=== PATIENT | female | born 1960 | race Caucasian/White ===

== ENCOUNTER 2016-12-28 13:27 | Emergency (ER) | payer OTHER ==
[2016-12-28 13:47] VITALS: RESP 16; TEMP 98.5
--- NOTE | 2016-12-28 14:37 | ED ---
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 She states she had about one half hour loss of memory from this is not sure if she actually got knocked out. She states she's been functioning well she did have facial pain and nose pain but for the most part her face is healing up but today at work she developed some headache nausea vomiting. No focal weakness to her upper or lower extremities she denies any fevers chills or sweats she denies any blurry vision. She was instructed by her employer to come in for evaluation due to her prior history. MD Complaint: head injury, head pain, fall - Related Data Home Medications Medication Instructions Recorded Confirmed Citalopram Hydrobromide 40 mg PO DAILY 07/14/14 12/28/16 [Citalopram HBr] buPROPion [Wellbutrin] 100 mg PO TID 10/06/15 12/28/16 lamoTRIgine [LaMICtal] 100 mg PO BID 12/28/16 12/28/16 Previous Rx's Medication Instructions Recorded Acetaminophen Tab [Tylenol] 650 mg PO Q6HR PRN #0 tab 08/04/16 Allergies/Adverse reactions: Allergies Allergy/AdvReac Type Severity Reaction Status Date / Time morphine Allergy Itching Verified 12/28/16 14:31 aspirin AdvReac Unknown Verified 12/28/16 14:31 Review of Systems ROS Statement: Those systems with pertinent positive or pertinent negative responses have been documented in the HPI. ROS Other: All systems not noted in ROS Statement are negative. Neurological: Reports: as per HPI Past Medical History Past Medical History: Asthma, Cancer, CVA/TIA Additional Past Medical History / Comment(s): breast cancer, brain aneurysms, brain bleed History of Any Multi-Drug Resistant Organisms: None Reported Past Surgical History: Section, Cholecystectomy, Hysterectomy, Orthopedic Surgery Additional Past Surgical History / Comment(s): mariia mastectomy with reconstruction, carple tunnel, splenectomy, bladder surgery. 4inch metal plate in left wrist due to fall. Past Anesthesia/Blood Transfusion Reactions: No Reported Reaction Past Psychological History: Anxiety, Depression Smoking Status: Former smoker Past Alcohol Use History: None Reported Past Drug Use History: None Reported - Past Family History Mother Family Medical History: Cancer, Diabetes Mellitus Additional Family Medical History / Comment(s): breast cancer Father Family Medical History: Cancer, Myocardial Infarction ([place]) Additional Family Medical History / Comment(s): colon and prostate cancer General Exam - General Exam Comments Initial Comments: This is a well-developed well-nourished awake alert oriented 3 female she has a [place] Coma Scale of 15 Limitations: no limitations General appearance: alert, in no apparent distress Head exam: Present: normocephalic (Patient does demonstrate healing ecchymosis around the inferior left orbit and to the left forehead with some tenderness palpation also tenderness over the nasion. There is a superficial healing laceration to the lateral left orbit. No obvious orbital instability.), other Eye exam: Present: normal appearance, PERRL, EOMI. Absent: scleral icterus, conjunctival injection, periorbital swelling ENT exam: Present: normal oropharynx, mucous membranes moist, TM's normal bilaterally, other (Boggy nasal mucosa no evidence of any bleeding.) Neck exam: Present: normal inspection, tenderness, full ROM, other (Some tenderness to the proximal cervical spine to palpation over the spinous processes and paraspinous musculature.) Respiratory exam: Present: normal lung sounds bilaterally. Absent: respiratory distress, wheezes, rales, rhonchi, stridor Cardiovascular Exam: Present: regular rate, normal rhythm, normal heart sounds. Absent: systolic murmur, diastolic murmur, rubs, gallop, clicks GI/Abdominal exam: Present: soft, normal bowel sounds. Absent: distended, tenderness, guarding, rebound, rigid Extremities exam: Present: normal inspection, full ROM, normal capillary refill. Absent: tenderness, pedal edema, joint swelling, calf tenderness Back exam: Present: normal inspection Neurological exam: Present: alert, oriented X3, CN II-XII intact Psychiatric exam: Present: normal affect, normal mood Skin exam: Present: warm, dry, intact, normal color. Absent: rash Course Vital Signs 12/28/16 12/28/16 13:42 14:52 Temperature 98.5 F Pulse Rate 89 77 Respiratory 16 16 Rate Blood Pressure 161/92 130/75 O2 Sat by Pulse 98 97 Oximetry Medical Decision Making - Medical Decision Making I did discuss the findings with the patient she will be discharged she is a follow-up with her doctor return when necessary the patient does demonstrate symptoms of a concussion due to the memory loss. - Radiology Data Radiology results: report reviewed (I did review the imaging and reports no acute findings are seen.), image reviewed Disposition Clinical Impression: Concussion without loss of consciousness, Facial contusion Disposition: HOME SELF-CARE Condition: Good Instructions: Concussion (ED), Contusion in Adults (ED)
[2016-12-28 14:53] VITALS: BP 130/75; PULSE 77
--- NOTE | 2016-12-28 15:04 | CT ---
EXAMINATION TYPE: CT brain alize wo con DATE OF EXAM: 12/28/2016 2:59 PM COMPARISON: 08/02/2016 HISTORY: History of subarachnoid hemorrhage. Fall 1 week ago. Frontal injury. Headache, dizziness and visual disturbance. CT DLP: 1439.[address] of the brain was performed. The ventricles, basal cisterns and sulci overlying the cerebral convexities demonstrate minimally enl argement. There is no evidence for intracranial hemorrhage or sulcal effacement. There is decreased attenuatio n about the periventricular white matter and deep white matter of both cerebral hemispheres, compatib le with chronic small vessel ischemia. No mass effects are seen. If symptoms persist consider MRI. Osseous calvarium is intact. Left frontal scalp hematoma. IMPRESSION: 1. Left frontal scalp hematoma without evidence for acute intracranial process at this time. CT Cervical Spine: Unenhanced CT of the cervical spine was performed with bone and soft tissue window settings submitted . Coronal and sagittal reconstruction is obtained. There is normal alignment and prevertebral soft tissues. No evidence for acute cervical fracture . Scattered degenerative disc disease and spondylosis. Biapical scarring. IMPRESSION: 1. No evidence for acute fracture or subluxation of the cervical spine.
[2016-12-28] MEDS ORDERED: IBUPROFEN 800 MG TAB PO STA (15:42)
[2016-12-28] MEDS ORDERED: ACETAMINOPHEN TAB 500 MG TAB PO STA (15:48)
== END 2016-12-28 16:07 | disposition home or self-care (01) ==
LOC: EC 13:27
DX: S06.0X0A Concussion without loss of consciousness, initial encounter (principal); S00.83XA Contusion of other part of head, initial encounter; F32.9 Major depressive disorder, single episode, unspecified; W01.0XXA Fall on same level from slipping, tripping and stumbling without subsequent striking against object, initial encounter; Z79.899 Other long term (current) drug therapy; Z88.6 Allergy status to analgesic agent; Z88.5 Allergy status to narcotic agent; Z87.891 Personal history of nicotine dependence
CPT/HCPCS: 70450; 72125; 99283